=== PATIENT | male | born 1985 | race Caucasian/White ===

== ENCOUNTER 2018-10-22 00:37 | Emergency (ER) | payer MEDICAID ==
[~2018-10-22] VITALS: Ht 175.3 cm; Wt 99.5 kg
[~2018-10-22 00:37] MED LIST: COLD MED; SINUS MED
[2018-10-22 00:39] VITALS: Ht 175.3 cm; Wt 99.5 kg
[2018-10-22] MEDS ORDERED: ONDANSETRON (ODT) 4 MG TAB ODT STA (02:31)
[2018-10-22] MEDS ORDERED: HYDROCODONE/APAP (5/325) TAB PO ONE (03:00)
--- NOTE | 2018-10-22 03:00 | ERD ---
ER Documentation Chief Complaint Chief Complaint HEADACHE WITH NAUSEA AND FEELING WEAK X4DAYS HPI 33-year-old male presents with complaint of headache, nausea, and feeling of generalized weakness for the past 4 days. In addition he states he is vomited 2 times in the last 4 days. States that the headache was came on suddenly after vomiting. States that he has not had a headache like this before and is no history of headaches. Currently describes the pain of the headache is 6 out of 10. Denies any fevers, photophobia, nuchal rigidity. ROS All systems reviewed and are negative except as per history of present illness. Medications Home Meds Active Scripts Ibuprofen* (Motrin*) 600 Mg Tab, 600 MG PO Q6, #30 TAB Prov:CHANDA CARCAMO 10/22/18 Reported Medications [Cold Med] No Conflict Check 07/22/10 [Sinus Med] No Conflict Check 07/22/10 Allergies Allergies: Coded Allergies: No Known Allergies (Verified Allergy, Mild, 07/22/10) PMhx/Soc History of Surgery: Yes (CHOLECYSTECTOMY) Anesthesia Reaction: No Hx Neurological Disorder: No Hx Respiratory Disorders: No Hx Cardiac Disorders: No Hx Psychiatric Problems: No Hx Miscellaneous Medical Probl: No Hx Alcohol Use: No Hx Substance Use: No Hx Tobacco Use: Yes Smoking Status: Current some day smoker FmHx Family History: No diabetes, No coronary disease, No other Physical Exam Vitals Vital Signs Date Temp Pulse Resp B/P (MAP) Pulse Ox O2 O2 Flow FiO2 Time Delivery Rate 10/22/18 76 16 145/70 99 Room Air 04:28 (95) 10/22/18 98.1 109 19 180/90 99 00:39 (120) Physical Exam Const: No acute distress Head: Atraumatic Eyes: Normal Conjunctiva ENT: Normal External Ears, Nose and Mouth. Neck: Full range of motion. No meningismus. Resp: Clear to auscultation bilaterally Cardio: Regular rate and rhythm, no murmurs Abd: Soft, non tender, non distended. Normal bowel sounds Skin: No petechiae or rashes Back: No midline or flank tenderness Ext: No cyanosis, or edema Neur: Awake and alert. CN I through XII intact. Psych: Normal Mood and Affect Neuro: M/S: Alert and oriented Face: EOMI, face and pharynx with normal sensation and function Motor: Normal strength throughout Sensation: Normal sensation throughout Speech: Normal Cerebel: Normal coordination Normal gait Normal finger to nose DTR: 2+ and symmetric upper/lower extremities Results 24 hrs Laboratory Tests Test 10/22/18 04:25 Bedside Glucose 102 mg/dL Current Medications Medications Dose Sig/Nely Start Time Status Last (Trade) Ordered Route PRN Stop Time Admin Dose Reason Admin Ondansetron 8 mg ONCE STAT 10/22/18 DC 10/22/18 HCl (Zofran ODT 02:31 02:36 Odt) 10/22/18 02:32 1 tab ONCE ONCE 10/22/18 DC 10/22/18 Acetaminophen PO 03:00 02:36 / 10/22/18 03:01 Hydrocodone Bitart ([place] ()) Procedures/MDM DIAGNOSTIC IMAGING REPORT Patient: ISAIAH WEAVER : 1985 Age: 33 Sex: M MR #: [id number] DOS: 10/22/18 0231 Ordering MD: CHANDA CARCAMO Location: [facility] Room/Bed: PROCEDURE: CT BRAIN WITHOUT CONTRAST CLINICAL INDICATION: 33-year-old male with sudden onset severe headache. TECHNIQUE: The study was performed utilizing [employer] VCT 64-slice CT scanner. Direct axial sections were obtained from the foramen magnum to the vertex without the use of intravenous contrast material. Sagittal and coronal reformations were obtained. One or more of the following dose reduction techniques were utilized: automated exposure control, adjustment of the mA and/or kV according to patient's size or use of iterative reconstruction technique. DICOM images are available. The images were viewed on a PACS workstation. CTD/vol = 39.34 mGy; Total Exam DLP = 713.51 mGy.cm. COMPARISON: None. FINDINGS: The ventricles have a normal size, shape and position. There is no evidence for mass effect or midline shift. There are no intracranial areas of abnormal attenuation. There is no evidence for acute intra or extra-axial blood. The bony calvarium is intact. There is mild polypoidal mucosal thickening within the inferior right maxillary sinus. No air-fluid levels are noted. The mastoid air cells are without significant soft tissue. IMPRESSION: 1. The intracranial contents are unremarkable on this noncontrast CT scan of the brain. 2. Mild polypoidal mucosal thickening inferior right maxillary sinus. .Farhan Muhammad MD, MD Date Time Electronically viewed and signed by .Farhan Muhammad MD, on 10/22/2018 04:11 .M/ CC: CHANDA CARCAMO [id number] MDM: CT results were within normal limits. Patient had no complaint of focal deficits and none were found on exam. In addition, patients CT was normal, and patients GONZALEZ is currently only 11/19 with NAD, therefore I have low suspicion for intracranial bleed and do not think that LP is necessary. Accu-Chek was performed and blood sugar was normal as well. I have low suspicion for intracranial hemorrhage, elevated intracranial pressure, intracranial mass, aneurysm, meningitis, malignant hypertension, giant cell arteritis, carotid dissection, intracranial abscess, cerebral venous thrombosis, CO2 poisoning, or other emergent causes of headache based on patients history and exam. Patient discharged with strict ER precautions. Patient advised to follow up with PMD. All questions answered at discharge. Departure Diagnosis: Primary Impression: Headache Headache type: unspecified Headache chronicity pattern: acute headache Intractability: not intractable Qualified Codes: R51 - Headache Condition: Stable CHANDA CARCAMO October 22, 2018 03:00
[2018-10-22] MEDS ORDERED: IBUP-1542 PO (04:17)
[2018-10-22 04:28] VITALS: BP 145/70; PULSE 76; RESP 16
== END 2018-10-22 04:29 | disposition home or self-care (01) ==
LOC: FTE 00:37
DX: R51 Headache (principal); F17.210 Nicotine dependence, cigarettes, uncomplicated; R11.2 Nausea with vomiting, unspecified
CPT/HCPCS: 70450; 82962; Z7502; Z7610